=== PATIENT | female | born 1975 | race Caucasian/White ===

== ENCOUNTER 2016-09-13 18:11 | Emergency (ER) | payer BC, OTHER ==
[2016-09-13 18:25] VITALS: PULSE 77; RESP 18
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
--- NOTE | 2016-09-13 18:55 | XR ---
EXAMINATION TYPE: XR shoulder complete LT DATE OF EXAM: 09/13/2016 6:51 PM CLINICAL HISTORY: pain COMPARISON: NONE TECHNIQUE: Three views of the left shoulder are obtained. FINDINGS: There is no acute fracture/dislocation evident. The acromioclavicular and glenohumeral kathleen int spaces appear within normal limits. The visualized ribs are intact and unremarkable. IMPRESSION: 1. There is no acute fracture or dislocation. ICD 10 NO FRACTURE, INITIAL EVALUATION
--- NOTE | 2016-09-13 19:03 | XR ---
EXAMINATION TYPE: XR cervical spine trauma DATE OF EXAM: 09/13/2016 6:52 PM CLINICAL HISTORY: pain COMPARISON: NONE TECHNIQUE: Frontal, lateral, oblique, swimmers, and open mouth view of the cervical spine are obtaine d. FINDINGS: The cervical spine is visualized in its entirety from C1 thru the top of T1 level. It is s atisfactory in alignment without evidence of acute fracture or dislocation. The pre-vertebral soft t issue appears within normal limits. Disc spaces are well preserved. The C1-C2 articulation is unremar kable on the open mouth view. The oblique images are within normal limits. IMPRESSION: No acute fracture or dislocation is seen in the cervical spine.ICD 10 NO FRACTURE, INITI AL EVALUATION
[2016-09-13] MEDS ORDERED: CYCLOBENZAPRINE 10MG STARTER 3 TAB BTL PO STA (19:09)
[2016-09-13 19:40] VITALS: BP 121/77; TEMP 98
== END 2016-09-13 19:40 | disposition home or self-care (01) ==
LOC: EC 18:11
DX: S16.1XXA Strain of muscle, fascia and tendon at neck level, initial encounter (principal); S46.912A Strain of unspecified muscle, fascia and tendon at shoulder and upper arm level, left arm, initial encounter; G40.909 Epilepsy, unspecified, not intractable, without status epilepticus; Z79.899 Other long term (current) drug therapy; Z88.5 Allergy status to narcotic agent; V89.2XXA Person injured in unspecified motor-vehicle accident, traffic, initial encounter; Y92.89 Other specified places as the place of occurrence of the external cause
CPT/HCPCS: 72050; 99284